=== PATIENT | female | born 1995 | race Caucasian/White ===

== ENCOUNTER → 2017-01-28 | Outpatient (REF) | payer OTHER ==
[~2017-01-28] MED LIST: ALBU83IN INH; OMEP40CA2 PO; SUCR1TA PO
[2017-01-28 19:31] LABS: FREE T4 1.22 NG/DL (0.76-1.46)
== END ==
LOC: M LABDRAW1 17:14
PROVIDERS: ATTEND Physician Assistant Medical
DX: R63.5 Abnormal weight gain (principal)

== ENCOUNTER 2017-03-17 06:02 | Emergency (ER) | payer OTHER ==
[~2017-03-17] VITALS: Ht 162.6 cm; Wt 112.0 kg
[2017-03-17 06:16] VITALS: BP 143/97
[2017-03-17] MEDS ORDERED: ISOVUE-370 76% 100ML VIAL (Q9967) As Ordered ONE (06:30)
[2017-03-17] MEDS ORDERED: fentaNYL 100 MCG/2 ML INJECTION (J3010) IV ONE (06:30)
[2017-03-17 07:08] LABS: BASO # 0.1 K/mm3 (0.0-0.2); BASO % 0.7 % (0.0-1.0); EOS # 0.2 K/mm3 (0.0-0.50); LARGE UNSTAINED CELL # 0.1 K/mm3 (0.0-0.4); LARGE UNSTAINED CELL % 0.7 % (0.0-4.0); LYMPH # 1.9 K/mm3 (1.5-6.5); LYMPH % 17.3 % (24.0-44.0); MEAN CORPUSCULAR HEMOGLOBIN 28.9 pg (27.0-33.0); MEAN CORPUSCULAR VOLUME 84.7 fl (80.0-96.0); MONO # 0.4 K/mm3 (0.0-0.8); MONO % 4.1 % (0.0-5.0); NEUTROPHILS % 75.2 % (36.0-66.0); PLATELET COUNT, AUTOMATED 256 k/mm3 (150-450); RED CELL DISTRIBUTION WIDTH 12.9 % (11.5-14.5); WHITE BLOOD COUNT 10.6 K/mm3 (4.0-10.0)
[2017-03-17 07:16] LABS: INR 0.98
[2017-03-17 07:25] LABS: CONTROL LINE HCG INT CTR LINE PRESENT
[2017-03-17 07:33] LABS: ALBUMIN 3.5 GM/DL (3.2-5.2); ALKALINE PHOSPHATASE 85 U/L (45-117); ALT/SGPT 28 U/L (12-78); ANION GAP 9 MEQ/L (8-16); AST/SGOT 13 U/L (15-37); BILIRUBIN,DIRECT 0.1 MG/DL (0.0-0.2); BILIRUBIN,TOTAL 0.4 MG/DL (0.2-1.0); BLOOD UREA NITROGEN 11 MG/DL (7-18); CALCIUM LEVEL 8.9 MG/DL (8.5-10.1); CARBON DIOXIDE LEVEL 24 MEQ/L (21-32); CHLORIDE LEVEL 108 MEQ/L (98-107); CREATININE FOR GFR 0.81 MG/DL (0.55-1.02); GLOMERULAR FILTRATION RATE > 60.0 (>60); GLUCOSE, FASTING 104 MG/DL (70-105); POTASSIUM SERUM 3.4 MEQ/L (3.5-5.1); SODIUM LEVEL 141 MEQ/L (136-145)
--- NOTE | 2017-03-17 08:18 | REP ---
Clinical: Trauma. Technique: AP view of the pelvis with neutral and frog lateral views of the right hip. Findings: No acute fracture dislocation. Skeletal structures, joint space, and surrounding soft tissues are normal for age. Impression: No acute fracture dislocation. Signed by Elliott Moralez MD 03/17/2017 08:10 A
--- NOTE | 2017-03-17 08:18 | REP ---
Clinical: Trauma with thoracic pain. Technique: AP, lateral, and swimmers views. Findings: Alignment and kyphosis is maintained. Vertebral bodies intact. No acute fracture / compression injury or subluxation. No degenerative changes. Paravertebral soft tissues are normal. Impression: Normal thoracic spine series. Signed by Elliott Moralez MD 03/17/2017 08:10 A
--- NOTE | 2017-03-17 08:20 | REP ---
Clinical: Trauma. Technique: Axial contrast enhanced images from lung bases to the pubic symphysis using 100 ml Isovue 370 intravenous contrast material with coronal and sagittal re-formations. Findings: Lung bases are clear. No evidence for solid organ injury. Liver, spleen, pancreas, bilateral adrenal glands and kidneys are normal. The patient is status post cholecystectomy. The enteric system is without obstruction or acute inflammatory process. Normal terminal ileum and appendix identified in the right lower quadrant. Pelvis demonstrates normal bladder and age-appropriate uterus/adnexa. No ascites. No free air. No adenopathy. Vasculature is normal. Surrounding musculoskeletal structures are intact. Impression: No evidence for trauma/injury. No acute abdominopelvic pathology appreciated. Signed by Elliott Moralez MD 03/17/2017 08:12 A
--- NOTE | 2017-03-17 08:21 | REP ---
Clinical: Trauma. Technique: AP and lateral views of the right femur. Findings: In conjunction with pelvis and right hip images, the femur is intact without acute fracture or dislocation. Joint spaces and surrounding soft tissues are normal. Impression: No acute fracture or dislocation. Signed by Elliott Moralez MD 03/17/2017 08:13 A
--- NOTE | 2017-03-17 08:21 | REP ---
CT cervical spine without contrast HISTORY: Trauma COMPARISON: None There is no acute fracture or subluxation. There is no disc bulge or herniation. The spinal canal and neural foramina are patent. The intervertebral discs and vertebral bodies are normal in height. IMPRESSION: There is no acute fracture or subluxation. Signed by Sky Fox MD 03/17/2017 08:13 A
--- NOTE | 2017-03-17 08:22 | REP ---
Clinical: Trauma. Technique: AP, lateral, bilateral oblique views left foot . Findings: The osseous structures and joint spaces are intact and normal. There is no evidence for acute fracture or dislocation. Surrounding soft tissues are unremarkable. No subcutaneous emphysema or radiodense foreign body. Impression: Age appropriate examination . No acute fracture or dislocation. Signed by Elliott Moralez MD 03/17/2017 08:14 A
--- NOTE | 2017-03-17 09:19 | REP ---
Portable chest: Single view. History: Trauma. Comparison study: No comparisons. Findings: The lungs are well inflated and clear. Heart is not enlarged. Pulmonary vasculature is not increased. Pleural angles are sharp. No significant bony abnormality. There are clips in right upper quadrant. Impression: Negative portable chest x-ray. Signed by Eddi Milan MD 03/17/2017 05:09 P
[2017-03-17] MEDS ORDERED: PERC5TAB12 PO (09:40)
[2017-03-17] MEDS ORDERED: NAPR500T PO ×2 (09:40→10:08)
== END 2017-03-17 10:13 | disposition home or self-care (01) ==
LOC: EDBD 06:02 → M ED 06:02
DX: S30.1XXA Contusion of abdominal wall, initial encounter (principal); T14.8 Other injury of unspecified body region; V43.52XA Car driver injured in collision with other type car in traffic accident, initial encounter; Y92.410 Unspecified street and highway as the place of occurrence of the external cause
CPT/HCPCS: 36415; 71010; 72072; 72125; 73502; 73552; 73630; 74177; 80048; 80076; 81025; 83690; 84703; 85025; 85610; 85730; 93041; 94760; 96374; 99284; J3010; Q9967

== ENCOUNTER → 2018-07-20 | Outpatient (REF) | payer OTHER ==
[2018-07-20 20:51] LABS: CHLAMYDIA DNA AMPLIFICATION NEGATIVE (NEGATIVE); GC DNA AMPLIFICATION NEGATIVE (NEGATIVE)
== END ==
LOC: M LAB REF 17:23
DX: Z01.411 Encounter for gynecological examination (general) (routine) with abnormal findings (principal)

== ENCOUNTER → 2018-07-20 | Outpatient (REF) | payer OTHER ==
[2018-07-22 15:23] LABS: HPV HYBRID CAPTURE II Negative (Negative)
== END ==
LOC: M LAB REF 17:04
DX: Z01.411 Encounter for gynecological examination (general) (routine) with abnormal findings (principal); Z11.51 Encounter for screening for human papillomavirus (HPV)

== ENCOUNTER → 2018-11-16 | Outpatient (REF) | payer OTHER ==
[~2018-11-16] MED LIST changes: +NAPR-50 PO; +PERC5TAB12 PO
[2018-11-16 17:26] LABS: BASO # 0.1 10^3/uL (0.0-0.2); BASO % 0.9 % (0.0-1.0); EOS # 0.2 10^3/uL (0.0-0.50); EOS % 3.6 % (0.0-3.0); HEMOGLOBIN 12.8 g/dl (12.0-15.5); LYMPH # 1.2 10^3/uL (1.5-6.5); LYMPH % 18.7 % (24.0-44.0); MEAN CORPUSCULAR HEMOGLOBIN 28.9 pg (27.0-33.0); MEAN CORPUSCULAR HGB CONC 32.8 g/dl (32.0-36.5); MONO # 0.4 10^3/uL (0.0-0.8); MONO % 6.7 % (0.0-5.0); NEUTROPHILS # 4.6 10^3/uL (1.8-7.7); NEUTROPHILS % 69.5 % (36.0-66.0); PLATELET COUNT, AUTOMATED 205 10^3/uL (150-450); RED BLOOD COUNT 4.43 10^6/uL (4.00-5.40); WHITE BLOOD COUNT 6.6 10^3/uL (4.0-10.0)
[2018-11-18 15:24] LABS: EBV AB TO NUCLEAR ANTIGEN 24.6 U/mL (0.0-17.9); EBV VIRAL CAPSID AG IgM <36.0 U/mL (0.0-35.9)
== END ==
LOC: M LABDRAW1 16:33
PROVIDERS: ATTEND Physician Assistant
DX: R53.83 Other fatigue (principal)

== ENCOUNTER → 2019-08-14 | Outpatient (REF) | payer OTHER ==
[~2019-08-14] MED LIST changes: -NAPR-50 PO; +NAPR-837 PO; -OMEP40CA2 PO; +OMEP40CA97 PO
[2019-08-14 13:57] LABS: HEMATOCRIT 41.2 % (36.0-47.0); HEMOGLOBIN 13.1 g/dl (12.0-15.5); MEAN CORPUSCULAR HEMOGLOBIN 28.9 pg (27.0-33.0); MEAN CORPUSCULAR HGB CONC 31.8 g/dl (32.0-36.5); MEAN CORPUSCULAR VOLUME 90.7 fl (80.0-96.0); PLATELET COUNT, AUTOMATED 249 10^3/uL (150-450); RED BLOOD COUNT 4.54 10^6/uL (4.00-5.40); WHITE BLOOD COUNT 9.1 10^3/uL (4.0-10.0)
[2019-08-14 14:15] LABS: HEMOGLOBIN A1c 5.1 %
[2019-08-14 14:52] LABS: HCG, SERUM QUANTITATIVE 57076 MIU/ML
[2019-08-15 10:01] LABS: RUBELLA IgG QUALITATIVE IMMUNE (IMMUNE)
[2019-08-15 10:10] LABS: HEPATITIS B SURFACE ANTIGEN NEGATIVE (NEGATIVE)
[2019-08-15 10:31] LABS: HEPATITIS C VIRUS ABY INDEX 0.1 INDEX (<0.8); HIV 1&2 SCREEN CENTAUR NEGATIVE (NEGATIVE)
== END ==
LOC: M LAB REF 13:42
PROVIDERS: ATTEND Nurse Practitioner Women's Health
DX: O36.80X0 Pregnancy with inconclusive fetal viability, not applicable or unspecified (principal)

== ENCOUNTER → 2019-09-13 | Outpatient (REF) | payer OTHER | LOC: M LAB REF 13:05 | PROVIDERS: ATTEND Obstetrics & Gynecology | DX: Z34.81 Encounter for supervision of other normal pregnancy, first trimester (principal) ==

== ENCOUNTER → 2019-10-16 | Outpatient (REF) | payer OTHER | LOC: M LAB REF 12:37 | PROVIDERS: ATTEND Obstetrics & Gynecology | DX: Z34.82 Encounter for supervision of other normal pregnancy, second trimester (principal) ==

== ENCOUNTER → 2020-01-10 | Outpatient (CLI) | payer OTHER ==
[2020-01-10 16:33] LABS: HEMATOCRIT 36.7 % (36.0-47.0); MEAN CORPUSCULAR HEMOGLOBIN 29.4 pg (27.0-33.0); MEAN CORPUSCULAR HGB CONC 32.7 g/dl (32.0-36.5); PLATELET COUNT, AUTOMATED 227 10^3/uL (150-450); RED BLOOD COUNT 4.08 10^6/uL (4.00-5.40); WHITE BLOOD COUNT 12.4 10^3/uL (4.0-10.0)
== END ==
LOC: M LAB 14:35
PROVIDERS: ATTEND Obstetrics & Gynecology
DX: Z34.82 Encounter for supervision of other normal pregnancy, second trimester (principal); Z36.89 Encounter for other specified antenatal screening
CPT/HCPCS: 36415; 82950; 85027; 86850; 86901; J2790

== ENCOUNTER → 2020-02-28 | Outpatient (REF) | payer OTHER ==
[~2020-02-28] MED LIST changes: +ACET-683 PO; +IBUP80TA PO; +PRENTAB9 PO; +TUMS500C PO; +ZYRTTAB8 PO
== END ==
LOC: M LAB REF 12:16
PROVIDERS: ATTEND Obstetrics & Gynecology
DX: Z36.89 Encounter for other specified antenatal screening (principal); Z3A.00 Weeks of gestation of pregnancy not specified

== ENCOUNTER 2020-03-14 01:48 | Inpatient (IN) | payer OTHER ==
[2020-03-14] VITALS (48 sets, daily range): BP systolic 108–181; BP diastolic 57–101
[~2020-03-14] VITALS: Ht 162.6 cm; Wt 126.3 kg
[~2020-03-14 01:48] MED LIST changes: -ACET-683 PO; -IBUP80TA PO; -PRENTAB9 PO; -TUMS500C PO; -ZYRTTAB8 PO
[2020-03-14 04:12] LABS: BASO # 0.1 10^3/uL (0.0-0.2); BASO % 0.4 % (0.0-1.0); EOS # 0.3 10^3/uL (0.0-0.5); EOS % 2.7 % (0.0-3.0); HEMATOCRIT 35.9 % (36.0-47.0); HEMOGLOBIN 11.7 g/dl (12.0-15.5); LYMPH # 1.9 10^3/uL (1.5-5.0); LYMPH % 14.4 % (24.0-44.0); MEAN CORPUSCULAR HEMOGLOBIN 29.2 pg (27.0-33.0); MEAN CORPUSCULAR HGB CONC 32.6 g/dl (32.0-36.5); MEAN CORPUSCULAR VOLUME 89.5 fl (80.0-96.0); MONO # 0.7 10^3/uL (0.0-0.8); MONO % 5.1 % (0.0-5.0); NEUTROPHILS # 9.8 10^3/uL (1.5-8.5); NEUTROPHILS % 76.7 % (36.0-66.0); PLATELET COUNT, AUTOMATED 199 10^3/uL (150-450); RED BLOOD COUNT 4.01 10^6/uL (4.00-5.40); WHITE BLOOD COUNT 12.8 10^3/uL (4.0-10.0)
[2020-03-14 04:42] LABS: ALT/SGPT 10 U/L (12-78); BILIRUBIN,TOTAL 0.2 MG/DL (0.2-1.0); CREATININE FOR GFR 0.65 MG/DL (0.55-1.30); GLOMERULAR FILTRATION RATE > 60.0 (>60); LDH LACTATE DEHYDROGENASE 171 U/L (84-246); URIC ACID 5.7 MG/DL (2.6-6.0)
[2020-03-14] MEDS ORDERED: ZYRTTAB8 PO (07:10)
[2020-03-14] MEDS ORDERED: PRENTAB9 PO (07:10)
[2020-03-14] MEDS ORDERED: TUMS500C PO (07:31)
[2020-03-14] MEDS ORDERED: ACET-683 PO (07:31)
[2020-03-14] MEDS ORDERED: OXYTOCIN DRIP 30 UNITS in IV 1 EA IV SCH (08:15)
[2020-03-14] MEDS ORDERED: OXYTOCIN 30 UNITS IN 0.9% NaCl 500ML IV BAG (J2590) As Ordered ONE (08:16)
[2020-03-14] MEDS ORDERED: FENTANYL 2MCG/ML ROPIVACAINE 0.2% IN 0.9% NACL 100ML IVBAG As Ordered ONE (08:50)
[2020-03-14] MEDS ORDERED: NALOXONE INJ 0.4MG/1ML VIAL (J2310 PER 1MG) IV PRN (09:15)
[2020-03-14] MEDS ORDERED: ONDANSETRON 4MG/2ML VIAL IV PRN (09:15)
[2020-03-14] MEDS ORDERED: EPIDURAL COMMENT XX SCH (09:15)
[2020-03-14] MEDS ORDERED: ePHEDrine SULFATE 25 MG/5 ML(5MG/ML) SYRINGE IV PRN (09:15)
[2020-03-14] MEDS ORDERED: EPIDURAL/PCA KEYS XX PRN (09:15)
[2020-03-14] MEDS ORDERED: LACTATED RINGER'S 1000 ML IV PRN (09:15)
[2020-03-14] MEDS ORDERED: diphenhydrAMINE 50MG/ML VIAL (J1200) IV PRN (09:15)
[2020-03-14] MEDS ORDERED: REFRIGERATOR IV KEYS XX PRN (09:15)
[2020-03-14] MEDS: FENTANYL/ROPIVACAINE/NACL BAG 100 ML EPIDURAL SCH ×2 (09:31→14:35)
--- NOTE | 2020-03-14 10:47 | HPE ---
DATE OF ADMISSION: 03/14/2020 HISTORY OF PRESENT ILLNESS: Lidia is a 23-year-old female, 1, para 0, with an expected date of confinement (EDC) of 04/02/2020, estimated gestational age (EGA) 37-1/7 weeks gestation who presented this morning with gross rupture of membrane at around 1:38 in the morning. She is having some irregular contractions. Upon evaluation, she was found to be 3 cm dilated, grossly ruptured. At this point, a decision was made for admission. Her record was reviewed which was essentially unremarkable. LABS: Blood type is B negative. Rubella immune. Hepatitis negative. HIV negative. GC and chlamydia negative. 1-hour sugar testing was within normal limits. Her GBS is negative. PAST MEDICAL HISTORY: Significant for anxiety and seasonal allergies. PAST SURGICAL HISTORY: Cholecystectomy. SOCIAL HISTORY: The patient is . Denies any alcohol, drugs or cigarette smoking. REVIEW OF SYSTEMS: Unremarkable. MEDICATIONS: vitamin. ALLERGIES: NO KNOWN DRUG ALLERGIES. PHYSICAL EXAMINATION: Obese female in no acute distress. Abdomen: Soft, nontender, nondistended. Extremities: No clubbing, cyanosis or edema. Vaginal Exam: 3-4 cm dilated, 80% effaced, fetus at -2 station, vertex position. Tracing: Category one tracing with contractions every 4-5 minutes. ASSESSMENT: Intrauterine at 37-1/7 weeks gestation with gross rupture of membrane in labor. GBS negative. PLAN: Admit to labor and delivery. Routine labs sent. Pain management discussed. The patient opts for an epidural. Will continue to monitor. Anticipate delivery.
[2020-03-14] MEDS ORDERED: ACETAMINOPHEN 500 MG TAB As Ordered ONE (16:30)
[2020-03-14] MEDS ORDERED: ACETAMINOPHEN 500 MG TAB PO ONE (16:45)
[2020-03-14] MEDS ORDERED: LACTATED RINGER'S 1000 ML IV ONE (16:45)
--- NOTE | 2020-03-14 17:30 | IPNPDOC ---
Text Note Date of Service The patient was seen on 03/14/20. NOTE Progress Called to room to evaluate for complaints of pressure. Anterior lip, 0 station. Attempted to reduce lip with maternal pushing efforts. Unable to do so. Repositioned for labor down attempt FH 160's, change from previous baseline of 130's. UC 2-3min, pitocin @ 4 mu Temp now 101.4. IV hydration, tylenol and unasyn ordered. NICU notified. Dr Jean updated on pt status. VS,Jacee, I+O VS, Cassius, I+O Laboratory Tests 03/14/20 04:04 Vital Signs Date Time Temp Pulse Resp B/P (MAP) Pulse Ox O2 Delivery O2 Flow Rate FiO2 03/14/20 16:25 99.5 122 20 134/82 (99) Jammie Blunt CNM Mar 14, 2020 17:30
[2020-03-14] MEDS ORDERED: AMPICILLIN SOD/SULBACTAM SOD 3 GM in D5W MINI-BAG PLUS 100 ML IV ONE (17:45)
--- NOTE | 2020-03-14 19:25 | IPNPDOC ---
Text Note Date of Service The patient was seen on 03/14/20. NOTE Progress Has been pushing a bit over an hour UC 2-3 minutes FH now 180-200 Presenting part at +2 Dr Jean requested to attend and expidite delivery VS,Cassius, I+O VS, Cassius, I+O Laboratory Tests 03/14/20 04:04 Vital Signs Date Time Temp Pulse Resp B/P (MAP) Pulse Ox O2 Delivery O2 Flow Rate FiO2 03/14/20 18:25 87 20 158/72 (100) 03/14/20 17:24 101.4 Jammie Blunt CNM Mar 14, 2020 19:25
[2020-03-14 20:06] LABS: CORD GAS ABE A -7.2; CORD GAS HCO3 A 20.6 MEQ/L; CORD GAS O2 SAT A 19.7 %; CORD GAS PCO2 A 49.8 mmHg; CORD GAS PH A 7.234 UNITS; CORD GAS PO2 A 14.7 mmHg; CORD GAS SBC A 16.9 MEQ/L; CORD GAS TCO2 A 22.1 MEQ/L
[2020-03-14 20:07] LABS: CORD GAS ABE V -7.3; CORD GAS HCO3 V 17.7 MEQ/L; CORD GAS O2 SAT V 42.3 %; CORD GAS PCO2 V 34.9 mmHg; CORD GAS PH V 7.324 UNITS; CORD GAS PO2 V 20.2 mmHg; CORD GAS SBC V 17.4 MEQ/L; CORD GAS TCO2 V 18.8 MEQ/L
[2020-03-14] MEDS ORDERED: ANUSOL HC CREAM 30GM TOP PRN (20:30)
[2020-03-14] MEDS ORDERED: DIBUCAINE 1% OINTMENT 30GM TOP PRN (20:30)
[2020-03-14] MEDS ORDERED: MOM 30ML SUSPENSION UDC PO PRN (20:30)
[2020-03-14] MEDS ORDERED: LIDOCAINE 1% MDV 20ML VIAL INFIL ONE (20:30)
[2020-03-14] MEDS ORDERED: ACETAMINOPHEN 500 MG TAB PO PRN (20:30)
[2020-03-14] MEDS ORDERED: IBUPROFEN 600MG TAB PO PRN (20:30)
[2020-03-14] MEDS ORDERED: RHOGAM 300 MCG (1500 IU) INJ (J2790) IM SCH (20:30)
[2020-03-14] MEDS ORDERED: ACETAMINOPHEN TAB 650MG DOSE (2X325MG) PO PRN (20:30)
[2020-03-14] MEDS ORDERED: DOCUSATE SODIUM 100 MG CAP PO PRN (20:30)
[2020-03-14] MEDS ORDERED: METHYLERGONOVINE MALEATE 0.2 MG TAB PO PRN (20:30)
[2020-03-14] MEDS: MEASLES,MUMPS,RUBELLA VACCINE INJ (MMR-II) (90707) SC SCH (22:14)
[2020-03-14] MEDS: IBUPROFEN 800 MG TAB PO PRN (23:03)
[2020-03-15 06:06] VITALS: BP 143/79
--- NOTE | 2020-03-15 07:14 | IPNPDOC ---
Text Note Date of Service The patient was seen on 03/15/20. NOTE PP #1 Feels well. Adequate pain management. Pumping. Voiding VSS, afebrile, normotensive Breasts soft, nipples intact Fundus firm, NT, down 1 FB Lochia rubra light without odor Perineum well approximated without edema. PP#1, post low forcep delivery Routine care. Anticipate D/C in am VS,Fishbone, I+O VS, Fishbone, I+O Vital Signs Date Time Temp Pulse Resp B/P (MAP) Pulse Ox O2 Delivery O2 Flow Rate FiO2 03/15/20 06:06 97.4 89 18 143/79 (100) 100 Room Air I&O- Last 24 Hours up to 6 AM 03/15/20 06:00 Intake Total 695.6 ml Output Total 1050 ml Balance -354.4 ml Jammie Blunt CNM Mar 15, 2020 07:14
[2020-03-15] MEDS ORDERED: BOOSTRIX/ADACEL VACCINE (DIPHTH/PERTUSS/ACELL/TETANUS) 0.5ML SYR IM ONE (09:00)
[2020-03-15] MEDS: PRENATAL VITAMINS CHEWABLE TABLET PO SCH (10:02)
[2020-03-15] MEDS: MEASLES,MUMPS,RUBELLA VACCINE INJ (MMR-II) (90707) SC SCH (11:15)
[2020-03-15 18:00] VITALS: BP 139/80
[2020-03-15] MEDS: IBUPROFEN 800 MG TAB PO PRN (20:52)
[2020-03-16 06:00] VITALS: BP 137/78
[2020-03-16] MEDS: PRENATAL VITAMINS CHEWABLE TABLET PO SCH (08:06)
[2020-03-16] MEDS: IBUPROFEN 800 MG TAB PO PRN (08:07)
[2020-03-16] MEDS ORDERED: IBUP80TA PO (08:49)
--- NOTE | 2020-03-25 15:47 | DN ---
DATE OF DELIVERY: 03/14/2020 PREDELIVERY DIAGNOSIS: Term , chorioamnioitis, arrest of descent. POSTDELIVERY DIAGNOSIS: Delivered. PROCEDURE: Low forceps assisted vaginal delivery. INFORMATION SPECIALIST: Sky Jean MD ANESTHESIA: Epidural. ESTIMATED BLOOD LOSS: 300 mL. FINDINGS: Viable male . Weight and scores unknown at the time of dictation. DELIVERY SUMMARY: After a 2 hour second stage, this patient was exhausted and diagnosed with arrest of descent. I was called by the fitness teacher to assist with this delivery. After a discussion, the decision was made to deliver with forceps. Iypqxs-[id number]-[id number] forceps were applied to the direct occiput posterior vertex without difficulty. Delivery was accomplished with single controlled traction along with maternal effort. Nuchal cord times two was reduced manually. The shoulders delivered with ease. The infant was handed to the mother. The cord was doubly clamped and cut. The placenta delivered spontaneously and appeared to be intact. The patient received IV Pitocin immediately after delivery of the placenta. A partial third-degree perineal laceration was repaired with 2-0 chromic under local anesthesia in the usual fashion. Sponge and needle counts were correct. Rectal exam was normal at the end of the procedure. The baby went to intensive care unit (NICU) for diagnosis of chorioamnionitis.
== END 2020-03-16 14:25 | disposition home or self-care (01) | DRG 768 ==
LOC: M LDO 01:48 → M LDI 02:47 → M OBS 22:30
PROVIDERS: ADMIT Obstetrics & Gynecology; ATTEND Obstetrics & Gynecology
PROC: 10D07Z3 Extraction of Products of Conception, Low Forceps, Via Natural or Artificial Opening (ICD-10-PCS; principal; 2020-03-14)
PROC: 0DQR0ZZ Repair Anal Sphincter, Open Approach (ICD-10-PCS; 2020-03-14)
DX: O41.1230 Chorioamnionitis, third trimester, not applicable or unspecified (principal); Z37.0 Single live birth; O70.20 Third degree perineal laceration during delivery, unspecified; Z3A.38 38 weeks gestation of pregnancy; O75.81 Maternal exhaustion complicating labor and delivery; O64.0XX0 Obstructed labor due to incomplete rotation of fetal head, not applicable or unspecified; O69.81X0 Labor and delivery complicated by cord around neck, without compression, not applicable or unspecified

== ENCOUNTER 2020-03-18 09:13 | Emergency (ER) | payer OTHER ==
[~2020-03-18] VITALS: Ht 162.6 cm; Wt 120.4 kg
[~2020-03-18 09:13] MED LIST changes: +ACET-683 PO; +IBUP80TA PO; +PRENTAB9 PO; +TUMS500C PO; +ZYRTTAB8 PO
[2020-03-18 10:21] LABS: BASO # 0.1 10^3/uL (0.0-0.2); BASO % 0.5 % (0.0-1.0); EOS # 0.4 10^3/uL (0.0-0.5); EOS % 3.5 % (0.0-3.0); HEMATOCRIT 32.6 % (36.0-47.0); HEMOGLOBIN 10.6 g/dl (12.0-15.5); LYMPH # 1.2 10^3/uL (1.5-5.0); LYMPH % 9.9 % (24.0-44.0); MEAN CORPUSCULAR HEMOGLOBIN 29.2 pg (27.0-33.0); MEAN CORPUSCULAR HGB CONC 32.5 g/dl (32.0-36.5); MEAN CORPUSCULAR VOLUME 89.8 fl (80.0-96.0); MONO # 0.4 10^3/uL (0.0-0.8); MONO % 3.4 % (0.0-5.0); NEUTROPHILS # 9.4 10^3/uL (1.5-8.5); NEUTROPHILS % 80.2 % (36.0-66.0); PLATELET COUNT, AUTOMATED 205 10^3/uL (150-450); RED BLOOD COUNT 3.63 10^6/uL (4.00-5.40); WHITE BLOOD COUNT 11.7 10^3/uL (4.0-10.0)
[2020-03-18 10:32] LABS: INR 0.98; PROTHROMBIN TIME 12.7 SECONDS (11.8-14.0)
[2020-03-18] MEDS ORDERED: ISOVUE-370 76% 100ML VIAL As Ordered ONE (10:49)
[2020-03-18 10:53] LABS: ALBUMIN 2.2 GM/DL (3.2-5.2); BILIRUBIN,DIRECT 0.1 MG/DL (0.0-0.2); BILIRUBIN,TOTAL 0.3 MG/DL (0.2-1.0); CK-MB VALUE MASS 3.1 NG/ML (<3.6); MB/CK RELATIVE INDEX 1.94 (< OR =4); TOTAL PROTEIN 5.5 GM/DL (6.4-8.2); TROPONIN I 0.06 NG/ML (< 0.10)
--- NOTE | 2020-03-18 14:09 | REP ---
CHEST, SINGLE VIEW: Single view of the chest is performed. There are scattered linear atelectatic changes in both lung bases as well as in the right mid lung zone. No consolidation is seen. The heart is normal in size. The mediastinal silhouette is unremarkable. IMPRESSION: Bilateral linear atelectatic changes. Electronically Signed by Enrrique Willams MD 03/18/2020 07:38 P
[2020-03-18] MEDS ORDERED: KEFL500C17 PO (16:09)
[2020-03-18 16:17] VITALS: BP 158/94
--- NOTE | 2020-03-18 16:25 | REP ---
CT ANGIOGRAM CHEST: TECHNIQUE: Axial contrast-enhanced images from the thoracic inlet to the upper abdomen using 100 mL Isovue-370 intravenous contrast material with multiplanar reformations. There is no CT evidence of pulmonary embolism. There is no thoracic aortic aneurysm or dissection. There is mild cardiomegaly. There is no pericardial effusion. No mediastinal, hilar, or chest wall lymphadenopathy is seen. There are very small bilateral pleural effusions. There is no pericardial effusion. There is diffuse thickening of interstitial markings and interlobular septa inferiorly, consistent with mild to moderate interstitial edema. No consolidation is seen. The patient has had a prior cholecystectomy. IMPRESSION: No evidence of pulmonary embolism. Mild to moderate interstitial edema with very small bilateral pleural effusions. Very mild cardiomegaly. Electronically Signed by Enrrique Willams MD 03/18/2020 07:52 P
--- NOTE | 2020-03-18 18:01 | ECHO ---
DATE OF PROCEDURE: 03/18/2020 REFERRING PHYSICIAN: [employer] Custodian Ai Delvalle PA-C INDICATION: Cardiomegaly. HEIGHT: 163 cm WEIGHT: 120 kg 2D MEASUREMENTS: Left atrium: 4.1 cm Ventricular septum: 1.06 cm Posterior wall: 1.11 cm Left ventricle diastole: 5.0 cm Aortic root: 3.0 cm LVOT: 2.1 cm Inferior vena cava: 2.3 cm with approximately 50% respiratory variation. DOPPLER MEASUREMENTS: Aortic valve velocity: 132 cm/s LVOT velocity: 93.3 cm/s LVOT VTI: 21.9 cm No aortic regurgitation. Trace mitral regurgitation. Mitral E velocity: 101 cm/s Mitral A velocity: 45.8 cm/s Mitral deceleration time: 114 ms Moderate tricuspid regurgitation. Structurally normal appearing tricuspid leaflets. Estimated right ventricle systolic pressure: 52 mmHg assuming a pressure of 10 mmHg. Mild pulmonic regurgitation. MITRAL ANNULAR TISSUE DOPPLER: E prime septal: 7.3 cm/s E prime lateral: 13.2 cm/s DESCRIPTION: Rhythm was sinus bradycardia, mostly in the 50s. Image quality was good. This was a 2D, M-mode, color flow Doppler and pulse wave Doppler examination and included mitral annular tissue Doppler. 1. Suggestive of moderate elevation of estimated right ventricle systolic pressure (52 mmHg) assuming a right atrial pressure of 10 mmHg. Normal right ventricle size and systolic function. Structurally normal tricuspid leaflets. Moderate tricuspid regurgitation. Appearance of normal right atrial size. 2. Normal left ventricle internal dimensions and wall thickness. Normal regional left ventricular (LV) wall motion and wall thickening. Normal LV systolic function. Left ventricular ejection fraction (LVEF) 50% by visual estimate. Normal LV diastolic function. 3. Mild left atrial dilatation. Normal LV diastolic function. 4. No pericardial effusion.
--- NOTE | 2020-03-19 12:07 | ECGEPIP ---
[facility] Test Date: 2020-03-18 Pat Name: NI LOJA Department: Room: - Gender: Female Recovery Room Nurse: reese : 1995 Requested By: LEYLA Estes Order Number: [id number] Reading MD: Aditi Gee Measurements Intervals Widen Rate: 65 P: 43 HI: 124 QRS: 38 QRSD: 85 T: 35 QT: 391 QTc: 408 Interpretive Statements SINUS RHYTHM WITH SINUS ARRHYTHMIA NSSTTWA NO PRIOR Electronically Signed on 03-19-2020 12:06:48 EDT by Aditi Gee
--- NOTE | 2020-03-20 15:16 | ED PDOC ---
Post-Departure Follow-Up rangel peters and oscar faxed formal report of cta chest and echo for fu Yannick Stewart MD Mar 20, 2020 15:16
== END 2020-03-18 16:42 | disposition home or self-care (01) ==
LOC: M ED 09:13
DX: O90.89 Other complications of the puerperium, not elsewhere classified (principal); J90 Pleural effusion, not elsewhere classified; O86.20 Urinary tract infection following delivery, unspecified; O99.43 Diseases of the circulatory system complicating the puerperium; R03.0 Elevated blood-pressure reading, without diagnosis of hypertension; R06.02 Shortness of breath
CPT/HCPCS: 71045; 71275; 80047; 80076; 81001; 82550; 82553; 83605; 83690; 84484; 85025; 85610; 87040; 87086; 87486; 87581; 87633; 87798; 93005; 93306; 99284; Q9967

== ENCOUNTER → 2022-11-24 | Outpatient (REF) | payer BC, OTHER ==
[~2022-11-24] MED LIST changes: +ALBU2.5V10 INH; -ALBU83IN INH; +KEFL500C17 PO; +OMEP40CA4 PO; -OMEP40CA97 PO
== END ==
LOC: M SFHCWAGY 10:09
PROVIDERS: ATTEND Nurse Practitioner Family
DX: Z12.4 Encounter for screening for malignant neoplasm of cervix (principal)
CPT/HCPCS: 87624; G0123

== ENCOUNTER → 2024-03-12 | Outpatient (CLI) | payer BC | LOC: M WHC 07:42 | PROVIDERS: ATTEND Advanced Practice Midwife | DX: Z34.82 Encounter for supervision of other normal pregnancy, second trimester (principal) ==